=== PATIENT | male | born 1970 | race Caucasian/White ===

== ENCOUNTER 2017-02-28 10:08 | Day surgery (SDC) | payer OTHER ==
[~2017-02-28] VITALS: Ht 182.9 cm; Wt 74.8 kg
[~2017-02-28 10:08] MED LIST: 0.9% Sodium Chloride 1,000 ML IV SCH; INDA2.5T2 PO; OXYC30TA80 PO; POTA15TA PO; Sodium Chloride LOK Flush 10 mL Syringe IV PRN; TAMS0.4C98 PO; fentaNYL-PF 50 mCg/mL 2 mL Inj IVPUSH PRN
[2017-02-28] MEDS ORDERED: Propofol 10 mg/mL 20 mL Inj ONE (10:09)
[2017-02-28 10:38] VITALS: BP 122/77; PULSE 79; RESP 14; O2SAT 98
--- NOTE | 2017-02-28 11:44 | PCM.ENDEGD ---
EGD Date of Service: Feb 28, 2017 Physician Salbador Parks MD Pre Procedure Diagnosis: Abdominal pain Post Procedure Dx & Findings: Gastritis Patient got Versed 7 mg and fentanyl 50 g. He was wide awake and therefore anesthesia rescue was needed. Procedure Esophagogastroduodenoscopy PROCEDURE IN DETAIL: After proper sedation, Olympus video endoscope was inserted into patient's mouth and esophagus was successfully intubated. Scope introduced esophagus. Esophagus showed normal shiny whitish mucosa consistent with squamous cell component. Z line was intact at 45 cm from the incisors. Scope advanced to the stomach. Stomach showed redness and edema consistent with gastritis mostly in the antrum. Biopsies obtained.. Cardia fundus body antrum pylorus were all visualized. Retroflexion was done. Stomach was easily inflated and deflatable using air. Scope further advanced to the distal duodenum. Duodenum revealed normal villous structures with normal appearing folds without any mass ulcer erosion. 5 biopsies obtained. Impression Gastritis Recommendation Avoid biopsies Presedation Assessment Risks and Benefits Informed consent was obtained from the patient after all risks and benefits including but not limited to drug reaction, infection, pain, bleeding, perforation, as well as alternatives were discussed. Patient monitoring Continuous pulse oximetry, cardiac monitoring, blood pressure monitoring, IV access, and oxygen at 2L per nasal cannula. Complications There were no periprocedural complications identified. Post Procedure Plan Post Procedure Recommendations 1. Restrict activities today. 2. Resume normal activities in the morning. 3. Resume medications. 4. GERD behavioral modification: - Avoid fatty, acidic, spicy, large meals - Do not lie down after meals - Do not eat or drink anything for at least 2 1/2 hours before going to bed at night - Discontinue tobacco and alcohol - Decrease or avoid caffeine - Avoid chocolate and mints - Decrease weight - Avoid aspirin and non steroidal anti-inflammatory agents (NSAID) such as Aleve, Advil, Mobic, Naproxen, Ibuprofen, etc 5. Add proton pump inhibitor. Take 30 minutes before 1st meal of the day. 6. Patient informed of normal post procedure side effects as bloating, drowsiness, blood streaking in the stool 7. If gastric biopsy reveal H.pylori, continue with appropriate treatment 8. If small bowel biopsy reveals celiac, continue with appropriate treatment 9. Please don't hesitate to call me with any questions Salbador Parks MD Feb 28, 2017 11:44
--- NOTE | 2017-02-28 12:02 | PCM.ENDCOL ---
Colonoscopy Date of Service: Feb 28, 2017 Physician Salbador Parks MD Pre Procedure Diagnosis: Screening family history of colon cancer and rectal bleeding. Post Procedure Dx & Findings: Polyp hemorrhoids Procedure Colonoscopy PROCEDURE IN DETAIL: Prep adequate Withdrawal time 12 minutes After unremarkable rectal examination the Olympus video colonoscope was inserted patient's anal canal and was advanced to cecum. Landmarks were identified including the ileocecal valve and appendiceal orifice. Scope was withdrawn systematically. Visualized colonic mucosa showed healthy shiny mucosa with normal healthy-appearing vasculature. In the transverse colon there was a 3 mm polyp which was removed completely using cold snare. In the rectum there were 2 polyps. They are about 1 mm in size which were both removed completely using cold forceps. In the rectum retroflexion was done which showed hemorrhoids. Anal canal was inspected carefully on the way out and hemorrhoids noted. Impression Polyp 3 status post complete removal History of colon cancer when his dad was in his 40s. Hemorrhoids Recommendation Repeat colonoscopy in 3 years. Presedation Assessment Risks and Benefits Informed consent was obtained from the patient after all risks and benefits including but not limited to drug reaction, infection, pain, bleeding, perforation, as well as alternatives were discussed. Patient monitoring Continuous pulse oximetry, cardiac monitoring, blood pressure monitoring, IV access, and oxygen at 2L per nasal cannula. Complications There were no periprocedural complications identified. Post Procedure Plan Post Procedure Recommendations 1. Restrict activities today. 2. Resume normal activities in the morning. 3. Resume medications. 4. Patient informed of normal post procedure side effects as bloating, drowsiness, blood streaking in the stool. 5. average risk CRCS. If colon polyps come back as: -Hyperplastic- can repeat colonoscopy in 10 years -Tubular adenoma- repeat colonoscopy in 5 years -Tubulovillous/villous adenoma- repeat colonoscopy in 3 years -If any dysplasia- return to clinic as soon as possible 6. Please don't hesitate to call me with any questions. Salbador Parks MD Feb 28, 2017 12:02
[2017-02-28 12:12] VITALS: BP 95/65; PULSE 66; RESP 16; O2SAT 100
[2017-02-28] MEDS ORDERED: Lactated Ringer's 1,000 ML IV SCH (12:16)
--- NOTE | 2017-02-28 12:16 | PCM.HPANE ---
Patient Data Date of Service: Feb 28, 2017 ([id number]) Surgeon Admitting Provider: Attending Provider:Salbador Parks MD Primary Care Physician:[facility]Rebekah Johnson Other Provider: Reason for Visit Rectal Pain, Abdominal Pain Of Unknown Ht/WT & BMI Height (Feet): 6 Height (Inches): 0 Weight (Kilograms): 74.84 Body Mass Index 22.00 Allergies Coded Allergies: No Known Drug Allergies (Verified Allergy, Unknown, 02/27/17) Past Anesthesia History Anesthesia History: Denies:: Abnormal Airway, Anesthesia Reactions, Difficult Intubation, Fam Anesthesia Reaction, Fam Malignant Hypertherm, Malignant Hyperthermia Diabetes History Hx Diabetes?: No MRSA MRSA: No Medications Reported Medications Potassium Citrate ER (Urocit-K)15 Meq [id number] Meq PO DAILY 02/27/17 oxyCODONE 30 Mg [id number] Mg PO TID PRN For Pain Ref 0 02/27/17 Indapamide 2.5 Mg Tablet2.5 Mg PO DAILY #30 TABLET 02/27/17 Tamsulosin (Flomax)0.4 Mg Capsule0.4 Mg PO DAILY Ref 0 02/27/17 History History of ENT Problems?: No HEENT History: Denies:: Abnormal Airway Cataracts Difficult Intubation Dysphagia Glaucoma Hearing Problem Sinus Problem TMJ Denture Type: Full- Upper Partial- Lower Teeth Condition: Within Normal Limits Hx of Heart Problems?: No Cardiovascular History: Denies:: AICD Abdominal Aortic Aneurism Atrial Fibrillation Cardiac Surgery Chest Pain Congestive Heart Failure Coronary Artery Disease Edema Heart Murmur Hypertension Irregular Heartbeat Pacemaker Peripheral Vascular Rheumatic Fever Thrombophlebitis Valvular Heart Disease Hx of Respiratory Problem?: No Respiratory History: Denies:: Asthma COPD Chest Surgery Cough Dyspnea Emphysema Hemoptysis Oxygen Administration Pneumonia Pulmonary Embolism Tuberculosis Use of C-PAP Machine Use of Inhalers / NEBS Hx Neurologic Problems?: No Neurological History: Denies:: Alzheimer's Disease CVA Dementia Dizziness Headaches Multiple Sclerosis Parkinson's Disease Peripheral Neuropathy Seizures TIA Hx of GI Problems?: No Gastrointestinal History: Denies:: Cirrhosis Diverticulitis Gall Bladder Disease Gastroesphageal Reflux Gastrointestinal Bleeding Heartburn Hepatitis Hiatal Hernia Liver Disease Rectal Bleeding Hx of Problems?: No Genitourinary History: Denies:: HX of Hemodialysis Kidney Stones Urinary Tract Infection HX of Peritoneal Dialysis: No Male Hx: Denies:: Prostate Problems Scrotal Mass Testicular Surgery Skin History: Denies:: History Skin Disorders? Pressure Ulcers Hx Musculoskeletal Problems?: No Musculoskeletal History: Denies:: Back Injury Degenerative Joint Fibromyalgia Joint Replacement Musculoskeletal Trauma Myasthenia Gravis Osteoarthritis Rheumatoid Arthritis Systemic Lupus Hx of Psycho/Social Problems?: No Psycho Social History: Denies:: Anxiety Bipolar Disorder Hx Depression Suicide Attempt Hx Surgeries?: Yes (Kidney stones, L shoulder, T&A) Hx Any Other Health Problems?: No Hx Diabetes: No Hx Alcohol Use: No Stop/Bang Treated for Sleep Apnea?: No S-Snoring: Do You Snore Loudly: No T-Tired: feel tired, fatigued: No O-Obsered: Observed not breath: No P-Blood Pressure: treated: No B- Body Mass Index > 35 kg/m2: No A- Age over 50: No N- Neck Large Circumference: No G- Gender Male: Yes OSCAR Total Score: 1 Risk Assessment Category Category 1A: Patient has history of documented sleep apnea, and HAS NOT received any narcotic, sedative or anesthesia administration during this stay. Category 1B: Patient has history of documented sleep apnea, and HAS received any narcotic , sedative or anesthesia administration during this stay Category 2: Patient has SUSPECTED Obstructive Sleep Apnea, and HAS received any narcotic , sedative or anesthesia administration during this stay. Category 3: Patient has SUSPECTED Obstructive Sleep Apnea and HAS NOT received narcotic, sedative or anesthesia administration during this stay. Category 4: Outpatient in Procedural Areas with known sleep apnea or who screen positive for High Risk via the STOP/BANG questionnaire. Exam Exam Vital Signs Vital Signs Date Time Temp Pulse Resp B/P Pulse Ox O2 Delivery O2 Flow Rate FiO2 02/28/17 12:12 66 16 95/65 100 Room Air 02/28/17 10:38 79 14 122/77 98 Room Air General Appearance: Alert, Oriented X3, Cooperative, No Acute Distress HEENT/AIRWAY: MP 2, Neck Movement (from) Lungs: Clear to Auscultation, Normal Air Movement Heart: Exam Unremarkable, Regular Rate/Rhythm, No Murmurs/Rubs/Gallops Meds/Labs/Diagnostics Admission Meds Current Medications Sodium Chloride (Normal Saline) 1,000 ml @ 10 mls/hr Q24H IV Last administered on 02/28/17t 11:36; Start 02/28/17 at 06:00 Lidocaine HCl (Xylocaine Viscous 2% Soln 15mL) 15 ml ONCE PO Last administered on 02/28/17t 11:32; Start 02/28/17 at 06:00 Plan Impression Patient chart reviewed, patient interviewed and anesthestic plan with risks, benefits, and alternatives discussed, and informed consent obtained. NPO per Anesth. Guidelines: Yes ASA Physical Status: ASA3 Severe Disease (Chronic pain) Anesthetic Plan: GA, MAC Bene/Risks/Altern/Consents: Yes HP Complete Prior to Induction: Yes Oliverio Nance MD Feb 28, 2017 12:16
--- NOTE | 2017-02-28 12:16 | PCM.ANEP1 ---
Post Anesthesia PACU Phase 1 Assessment Vital Signs Vital Signs Date Time Temp Pulse Resp B/P Pulse Ox O2 Delivery O2 Flow Rate FiO2 02/28/17 12:12 66 16 95/65 100 Room Air 02/28/17 10:38 79 14 122/77 98 Room Air Anesthetic Administered: GA, MAC Level of Alertness: Awake, talking HUSAIN's with Equal Strength: Yes Pain: No Nausea or Vomiting: No CV Function & Hydration Stable: No Airway Device: N/A Oxygen Delivery: Room Air Lungs: Clear to Auscultation, Normal Air Movement Dermatome Level: Full Sensation PACU Phase 2 Assessment Complications: No Follow up Care: N/A Patient Instructions Provided: N/A Oliverio Nance MD Feb 28, 2017 12:16
[2017-02-28] MEDS ORDERED: Ondansetron 2 mg/mL 2 mL Inj IVPUSH PRN (12:20)
[2017-02-28] MEDS ORDERED: MetoCLOpramide 5 mg/mL 2 mL Inj IVPUSH PRN (12:20)
[2017-02-28 12:21] VITALS: BP 116/74; PULSE 78; RESP 16; O2SAT 97
[2017-02-28 12:27] VITALS: BP 117/72; PULSE 77; RESP 16; O2SAT 100
--- NOTE | 2017-03-05 08:01 | PATH ---
SURGICAL PATHOLOGY Attending Physician:Salbador Parks M.D. CASE STATUS: Signed Out PATIENT NAME: LEONARDA SUAREZ PID: [id number] : 1970 DATE COLLECTED:02/28/2017 22:22 SPECIMEN: 1: Duodenum, Biopsy 2: Gastric, Biopsy 3: Colon, Polyp 4: Rectum, Biopsy CLINICAL HISTORY: 1). DUODENAL BIOPSY 2). GASTRIC BIOPSY, RULE OUT H.PYLORI 3). TRANSVERSE POLYP X1 4). RECTAL POLYP X2 FINAL DIAGNOSIS: 1. Duodenum, Biopsy: Normal small bowel mucosa. Negative for inflammation, histologic evidence of celiac disease, granulomas, dysplasia and malignancy. 2. Stomach, Biopsy: Antral and body mucosa with no diagnostic abnormality. Negative for inflammation and Helicobacter organisms. Negative for intestinal metaplasia, dysplasia and malignancy. 3. Transverse Colon Polyp, Biopsy: Tubular adenoma. 4. Rectal Polyps x 2, Biopsy: Two fragments of hyperplastic polyp. ICD10: D12.6 K63.5 GROSS DESCRIPTION: Received are four formalin-filled containers, each labeled with the patient's name. 1. Received in formalin, labeled with the patient's name and "duod biopsy" is one fragment of guevara soft tissue measuring 0.3 x 0.2 x 0.2 cm. The fragment is totally submitted in cassette 1A 2. Received in formalin, labeled with the patient's name and "gastric" are two fragments of guevara soft tissue ranging in size from 0.1 x 0.1 x 0.1 cm to 0.2 x 0.2 x 0.1 cm. All fragments are totally submitted in cassette 2A. 3. Received in formalin, labeled with the patient's name and "trans" is one fragment of guevara soft tissue measuring 0.6 x0 .3 x 0.2 cm. The fragment is totally submitted in cassette 3A. 4. Received in formalin, labeled with the patient's name and "rectal" are two fragments of guevara soft tissue ranging in size from 0.1 x 0.1 x 0.1 cm to 0.2 x 0.2 x 0.1 cm. All fragments are totally submitted in cassette 4A. ([id number]) ICD-9 CODES: CPT CODES: 1: 42528 2: 10854 3: 66761 4: 57081 Electronically Signed Out Jasmeet Esteban MD, PhD [facility] [address], [place] [address] Technical component performed at [facility], [address], [place], [address]
== END 2017-02-28 23:59 | disposition home or self-care (01) ==
LOC: END 10:08
PROVIDERS: ATTEND Internal Medicine
DX: D12.3 Benign neoplasm of transverse colon (principal); K62.1 Rectal polyp; K64.9 Unspecified hemorrhoids; K62.89 Other specified diseases of anus and rectum; R10.13 Epigastric pain; Z87.442 Personal history of urinary calculi; Z80.0 Family history of malignant neoplasm of digestive organs
CPT/HCPCS: 43239; 45380; 45385; J2250; J3010; J7030